=== PATIENT | female | born 1965 | race Caucasian/White ===

== ENCOUNTER 2016-12-26 11:50 | Inpatient (IN) ==
--- NOTE | 2016-12-26 12:23 | Emergency Department Note ---
Fall HPI - General Chief Complaint: Vaginal Bleeding Stated Complaint: Vaginal bleeding, weakness Time Seen by Provider: 12/26/16 12:19 Source: EMS Mode of arrival: ambulatory - History of Present Illness HPI Narrative: This patient is very hard to evaluate as she is not understandable due to previous stroke. Caregiver says she's been falling a lot recently as a week and has had slight vaginal bleeding. 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 - Related Data Home Medications Medication Instructions Recorded Confirmed bisacodyl 10 mg rectal suppository 10 mg VA ONCE PRN 08/09/16 12/08/16 rifaximin 550 mg tablet 550 mg PO BID 08/09/16 12/08/16 sodium phosphates 19 gram-7 118 ml VA ONCE PRN 08/09/16 12/08/16 gram/118 mL enema Previous Rx's Medication Instructions Recorded duloxetine 30 mg capsule,delayed 30 mg PO QDAY #90 cap 07/18/16 release furosemide 40 mg tablet 40 mg PO QDAY 90 Days 07/18/16 gabapentin 600 mg tablet 600 mg PO TID 90 Days 07/18/16 pantoprazole 40 mg tablet,delayed 40 mg PO QDAY #90 tab 07/18/16 release spironolactone 100 mg tablet 100 mg PO QDAY #90 tab 07/18/16 sucralfate 1 gram tablet 1 g PO BID 90 Days 07/18/16 acetaminophen 325 mg tablet 325 mg PO TID PRN #1 tab 08/23/16 Ondansetron [Zofran Odt] 4 mg PO Q4-6H PRN #14 tab 09/08/16 Cyclobenzaprine [Flexeril] 5 mg PO TIDP PRN #20 tab 09/27/16 Ciprofloxacin [Cipro] 500 mg PO BID #6 tab 10/05/16 lactulose 10 gram/15 mL oral 20 g PO TID PRN #500 ml 11/25/16 solution hydrocodone 5 mg-acetaminophen 325 1 tab PO TID #90 tab 12/08/16 mg tablet Adult Diapers #150 12/19/16 Allergies Allergy/AdvReac Type Severity Reaction Status Date / Time aspirin Allergy Mild Other Verified 12/26/16 11:56 iodine Allergy Mild Unknown Verified 12/26/16 11:56 Penicillins [PENICILLINS] AdvReac Mild Nausea Verified 12/26/16 11:56 Review of Systems Limitations: ROS unobtainable due to patients medical condition Fall PMH - Past Medical History Medical history: Reports: CVA, hypertension, liver disease, seizures, other ( History of hepatitis C and alcoholism, recent hepatoencephalopathy, carpal tunnel, hypertension, hyperglycemia, cardiomyopathy, alcohol dependence) Surgical history ED: Reports: cholecystectomy, hysterectomy, other (craniotomy) 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 Family history: Reports: no significant family history - Social History Alcohol use: Reports: Heavy (heavy in past but claims to have quit the last 4 weeks) Drug use: Reports: none Physical Exam - General Limitations: language barrier, physical limitation General appearance: in no apparent distress - Head Head exam: atraumatic - Eye Eye exam: Present: normal appearance - ENT ENT exam: normal exam - Neck Neck exam: Present: normal inspection - Chest Chest inspection: Present: normal inspection - Respiratory Respiratory exam: Present: normal lung sounds bilaterally - Cardiovascular Cardiovascular exam: Present: regular rate, normal rhythm, normal heart sounds - Abdominal Exam Abdominal exam: Present: soft. Absent: distention, tenderness - Speculum exam: Present: normal speculum exam. Absent: vaginal bleeding Bimanual exam: Present: normal bimanual exam - Psychiatric Psychiatric exam: Present: normal affect - Skin Skin exam: Present: warm, dry Course Vital Signs Temperature 97.9 F 12/26/16 11:52 Pulse Rate 83 12/26/16 11:52 Respiratory Rate 16 12/26/16 11:52 Pulse Oximetry (%) 99 12/26/16 11:52 Temperature 97.9 F 12/26/16 11:52 Pulse Rate 92 H 12/26/16 18:02 Respiratory Rate 18 12/26/16 18:02 Blood Pressure 113/69 12/26/16 18:02 Pulse Oximetry (%) 97 12/26/16 18:02 Fall - Lab Data Lab results reviewed: Yes I reviewed the patient's lab results. Result diagrams: 12/26/16 12:50 12/26/16 12:50 Lab Results 12/26/16 12/26/16 12/26/16 Range/Units 12:50 12:50 12:50 WBC 7.7 (4.5-11.0) K/mcL RBC 3.48 L (4.00-5.20) M/mcL Hgb 8.8 L (12.0-15.0) g/dL Hct 26.9 L (36.0-48.0) % MCV 77.4 L (80.0-100.0) fL MCH 25.3 L (26.0-34.0) pg MCHC 32.7 (31.0-36.0) g/dL RDW 21.2 H (11.5-14.5) % Plt Count 111 L (140-440) K/mcL MPV 7.9 (7.4-10.4) fL Gran % 67.6 (38.0-78.0) % Lymph % (Auto) 17.7 (15.5-49.0) % [place] % (Auto) 13.4 H (1.0-9.0) % Eos % (Auto) 0.8 (0.0-7.0) % Baso % (Auto) 0.5 (0.0-2.0) % Gran # 5.2 (1.8-8.0) K/mcL Lymph # 1.4 L (1.5-4.8) K/mcL [place] # 1.0 H (0.1-0.9) K/mcL Eos # 0.1 (0.0-0.7) K/mcL Baso # 0 (0.0-0.3) K/mcL PT 18.4 H (11.9-14.5) sec INR 1.5 H (0.9-1.1) Sodium 143 (133-145) mmol/L Potassium 3.7 (3.3-5.1) mmol/L Chloride 104 (96-108) mmol/L Carbon Dioxide 24 (22-30) mmol/L Anion Gap 15.0 (8-16) BUN 47 H (6-20) mg/dl Creatinine 1.3 H (0.6-1.1) mg/dl GFR Calculation 47 Glucose 100 (70-105) mg/dL Calcium 9.6 (8.6-10.4) mg/dl Total Bilirubin 2.3 H (0.0-1.0) mg/dL AST 63 H (0-37) U/l ALT 30 (0-40) U/l Alkaline Phosphatase 146 H (39-117) U/L Ammonia (11-51) mcmol/L Total Protein 6.4 (5.9-8.4) gm/dL Albumin 3.6 (3.2-5.2) gm/dL Globulin 2.8 (2.2-3.7) gm/dL Albumin/Globulin Ratio 1.3 (1.0-2.3) Urine Color Urine Appearance Urine pH (5.0-9.0) Ur Specific [place] (1.000-1.035) Urine Protein (NEG) mg/dL Urine Glucose (UA) (NEG) mg/dL Urine Ketones (NEG) mg/dL Urine Occult Blood (<0.03) mg/dL Urine Nitrate (NEG) Urine Bilirubin (NEG) mg/dL Urine Urobilinogen (NEG) mg/dL Ur Leukocyte Esterase (NEG) /uL Ur Culture Indicated? 12/26/16 12/26/16 Range/Units 12:50 17:06 WBC (4.5-11.0) K/mcL RBC (4.00-5.20) M/mcL Hgb (12.0-15.0) g/dL Hct (36.0-48.0) % MCV (80.0-100.0) fL MCH (26.0-34.0) pg MCHC (31.0-36.0) g/dL RDW (11.5-14.5) % Plt Count (140-440) K/mcL MPV (7.4-10.4) fL Gran % (38.0-78.0) % Lymph % (Auto) (15.5-49.0) % [place] % (Auto) (1.0-9.0) % Eos % (Auto) (0.0-7.0) % Baso % (Auto) (0.0-2.0) % Gran # (1.8-8.0) K/mcL Lymph # (1.5-4.8) K/mcL [place] # (0.1-0.9) K/mcL Eos # (0.0-0.7) K/mcL Baso # (0.0-0.3) K/mcL PT (11.9-14.5) sec INR (0.9-1.1) Sodium (133-145) mmol/L Potassium (3.3-5.1) mmol/L Chloride (96-108) mmol/L Carbon Dioxide (22-30) mmol/L Anion Gap (8-16) BUN (6-20) mg/dl Creatinine (0.6-1.1) mg/dl GFR Calculation Glucose (70-105) mg/dL Calcium (8.6-10.4) mg/dl Total Bilirubin (0.0-1.0) mg/dL AST (0-37) U/l ALT (0-40) U/l Alkaline Phosphatase (39-117) U/L Ammonia 77 H (11-51) mcmol/L Total Protein (5.9-8.4) gm/dL Albumin (3.2-5.2) gm/dL Globulin (2.2-3.7) gm/dL Albumin/Globulin Ratio (1.0-2.3) Urine Color Yellow Urine Appearance Clear Urine pH 5.0 (5.0-9.0) Ur Specific [place] 1.017 (1.000-1.035) Urine Protein Neg (NEG) mg/dL Urine Glucose (UA) Negative (NEG) mg/dL Urine Ketones 5/tr A (NEG) mg/dL Urine Occult Blood Neg (<0.03) mg/dL Urine Nitrate Neg (NEG) Urine Bilirubin Neg (NEG) mg/dL Urine Urobilinogen 2.0 A (NEG) mg/dL Ur Leukocyte Esterase Neg (NEG) /uL Ur Culture Indicated? No - Radiology Data Radiology results reviewed: Yes I reviewed the patient's radiology results. Disposition Clinical Impression: Hepatic encephalopathy Disposition: Xfer As Inpt ([facility]) Condition: Undetermined Referrals: Claudia Klein DO [Primary Care Provider] - Time of Disposition: 18:14
[2016-12-26] MEDS: 0.9 % SODIUM CHLORIDE 1,000 ML IV SCH ×3 (12:57→21:05)
[2016-12-26 14:17] LABS: Basophils # (Auto) 0 K/mcL (0.0-0.3); Basophils % (Auto) 0.5 % (0.0-2.0); Eosinophils # (Auto) 0.1 K/mcL (0.0-0.7); Eosinophils % (Auto) 0.8 % (0.0-7.0); Granulocytes % (Auto) 67.6 % (38.0-78.0); Lymphocytes # (Auto) 1.4 K/mcL (1.5-4.8); Lymphocytes % (Auto) 17.7 % (15.5-49.0); Mean Cell Volume 77.4 fL (80.0-100.0); Mean Corpuscular HGB Conc 32.7 g/dL (31.0-36.0); Mean Corpuscular Hemoglobin 25.3 pg (26.0-34.0); Monocytes % (Auto) 13.4 % (1.0-9.0); Platelet Count 111 K/mcL (140-440); RBC 3.48 M/mcL (4.00-5.20); Red Cell Distribution Width 21.2 % (11.5-14.5)
[2016-12-26 15:31] LABS: ALT/SGPT 30 U/l (0-40); Albumin 3.6 gm/dL (3.2-5.2); Albumin/Globulin Ratio 1.3 (1.0-2.3); Alkaline Phosphatase 146 U/L (39-117); Blood Urea Nitrogen 47 mg/dl (6-20)
--- NOTE | 2016-12-26 16:12 | Cat Scan Report ---
CLINICAL INFORMATION: Head injury. Altered level of consciousness COMPARISON: Previous examinations dated 10/03/2016 and 05/01/2015 TECHNIQUE: Axial noncontrast-enhanced images through the brain. FINDINGS: No acute intracranial hemorrhage. No subdural hematoma. No epidural hematoma. No subarachnoid hemorrhage. There is left middle cerebral artery territory encephalomalacia. This is a chronic abnormality. There is enlargement of left lateral ventricle. No acute intra-axial attenuation abnormalities. No mass effect. No interval change. Brainstem and cerebellum are negative. No calvarial fracture. Skull base is negative. IMPRESSION: 1. No acute posttraumatic abnormality. 2. Chronic left sided encephalomalacia. No interval change since 10/03/2016 Interpreted and Authenticated by: Zenon Medeiros 12/26/16
--- NOTE | 2016-12-26 16:54 | XRay Report ---
CLINICAL INFORMATION: Weakness TECHNIQUE: Upright AP chest x-ray COMPARISON: 10/13/2016 FINDINGS: Mild left basilar parenchymal density. Findings may be due to atelectasis but pneumonia is possible. Right lung is negative. Heart size and vascularity are normal. No pulmonary congestion. No pulmonary edema.. IMPRESSION: Left basilar parenchymal density as above. Interpreted and Authenticated by: Zenon Medeiros 12/26/16
--- NOTE | 2016-12-26 17:30 | XRay Report ---
CLINICAL INFORMATION: Hip pain. Pelvis pain. TECHNIQUE: AP pelvis. Bilateral lateral hips COMPARISON: None. FINDINGS: Negative pelvis. No fracture. No lytic lesion. Sacrum and sacroiliac joints are unremarkable. Negative hips. Femoral heads and necks are normal bilaterally. No fracture. Articular surfaces are round and smooth. No evidence for avascular necrosis. Degenerative disc disease in the lower lumbar spine. IMPRESSION: Negative pelvis and hips Interpreted and Authenticated by: Zenon Medeiros 12/26/16
[2016-12-26 17:43] LABS: Appearance,Urine CLEAR; Bilirubin,Urine NEG (NEG); Color,Urine YELLOW; Glucose,Urine (UA) NEGATIVE (NEG); Leukocyte Esterase,Urine NEG /uL (NEG); Nitrate,Urine NEG (NEG); Protein,Urine NEG (NEG); Specific Gravity,Urine 1.017 (1.000-1.035); Urine Blood NEG mg/dL (<0.03)
[2016-12-26] MEDS ORDERED: LEVOFLOXACIN 500 MG/100 ML BAG IV ONE (18:13)
[2016-12-26] MEDS ORDERED: guaiFENesin/CODEINE 10 ML UDC PO PRN (20:53)
[2016-12-26] MEDS ORDERED: ACETAMINOPHEN 325 MG TABLET PO PRN (20:53)
[2016-12-26] MEDS ORDERED: MAGNESIUM HYDROXIDE 30 ML ORAL.SUSP PO PRN (20:53)
[2016-12-26] MEDS ORDERED: ONDANSETRON 4 MG/2 ML VIAL IV PRN (20:53)
[2016-12-26] MEDS ORDERED: MAGNESIUM SULFATE 2 GM/50 ML BAG IV PRN (20:53)
[2016-12-26] MEDS ORDERED: POTASSIUM CHLORIDE 20 MEQ PACKET PO PRN (20:53)
[2016-12-26] MEDS: SENNOSIDES/DOCUSATE SODIUM 1 TAB TABLET PO SCH (21:36)
[2016-12-26] MEDS: cefTRIAXone 2 GM in DEXTROSE 5% IN WATER 50 ML IV SCH (21:36)
[2016-12-26] MEDS: DOCUSATE SODIUM 100 MG CAPSULE PO SCH (21:36)
[2016-12-26] MEDS: CYANOCOBALAMIN (VITAMIN B-12) 500 MCG TABLET PO SCH (21:36)
[2016-12-26] MEDS: traZODone HCL 50 MG TABLET PO PRN (21:36)
[2016-12-27] MEDS: 0.9 % SODIUM CHLORIDE 1,000 ML IV SCH ×5 (00:07→21:02)
[2016-12-27] MEDS: 0.9 % SODIUM CHLORIDE 10 ML SYRINGE IV SCH ×3 (00:07→12:25)
[2016-12-27 06:43] LABS: Mean Cell Volume 78.8 fL (80.0-100.0); Mean Corpuscular HGB Conc 31.8 g/dL (31.0-36.0); Platelet Count 75 K/mcL (140-440); RBC 2.87 M/mcL (4.00-5.20); Red Cell Distribution Width 21.7 % (11.5-14.5)
[2016-12-27 07:25] LABS: ALT/SGPT 24 U/l (0-40); Albumin 2.8 gm/dL (3.2-5.2); Albumin/Globulin Ratio 1.3 (1.0-2.3); Alkaline Phosphatase 109 U/L (39-117); Bilirubin,Direct 0.5 mg/dL (0.0-0.3); Blood Urea Nitrogen 30 mg/dl (6-20); Gamma Glutamyl Transpeptidase 24 U/L (5-36); Phosphorous 2.2 mg/dL (2.7-4.5); Uric Acid 9.9 mg/dL (2.5-8.0)
[2016-12-27] MEDS: PANTOPRAZOLE 40 MG VIAL IV SCH (07:46)
[2016-12-27 08:07] LABS: Anisocytosis 2+ (NONE SEEN); Band Neutrophils % 1 % (0-10); Eosinophils % (Manual) 3 % (0-7); Hypochromasia 1+ (NONE SEEN); Lymphocytes % 21 % (15-49); Monocytes % (Manual) 8 % (1-9); Myelocytes % 1 % (0-0); Platelet Estimate DECREASED (NORMAL); RBC Morphology ABNORMAL (NORMAL); Segmented Neutrophils % 66 % (38-78)
[2016-12-27] MEDS ORDERED: 0.9 % SODIUM CHLORIDE 250 ML IV SCH (08:30)
[2016-12-27] MEDS: MULTIVIT,THER IRON,CA,FA & MIN 1 TABLET PO SCH (09:48)
[2016-12-27] MEDS: THIAMINE 100 MG in 0.9 % SODIUM CHLORIDE 50 ML IV SCH (09:49)
[2016-12-27] MEDS: CYANOCOBALAMIN (VITAMIN B-12) 500 MCG TABLET PO SCH ×2 (09:49→20:44)
[2016-12-27] MEDS: DOCUSATE SODIUM 100 MG CAPSULE PO SCH ×2 (09:49→20:47)
--- NOTE | 2016-12-27 11:36 | Internal Med Progress Note ---
Medical - PN: Subj Patient information: Note initiated : 12/27/16 at 11:32 am Service Date, if different from initiated Date: [] Patient: Sridevi Bean 51 y/o F admitted on 12/26/16 for Vaginal Bleeding, Weakness/Hepatic Encephalopathy. Chief Complaint: [] Interval history: 12/26-atient admitted with altered mental status/hepatic encephalopathy. Left basilar infiltrates likely aspiration. On antibiotic coverage. Admitted to telemetry in light of high risk mortality.acute renal failure with creatinine of 1.3. started on crystalloids. Possible overdiuresis. severe PEM.dietary consult 12/27-patient alert and lucid and responsive. Responding to antibiotics. Sitting up in chair. Could not sleep last night. No telemetry events. Continue lactulose. Restart home meds. possible discharge 24 hours if clinically improved. Nutritional consult ongoing for severe protein calorie malnutrition. Continue physical therapy. Consider SNF - Constitutional Vitals: Vital Signs Temp Pulse Resp BP Pulse Ox 98.3 F 81 14 102/45 97 12/27/16 04:00 12/27/16 04:00 12/27/16 04:00 12/27/16 04:00 12/27/16 04:00 Period Temp Pulse Resp BP Sys/Rod Pulse Ox Last 24 Hr 98.3 F-98.3 F 78-87 14-16 101-108/45-61 96-98 Intake and Output 12/26/16 12/27/16 12/27/16 21:59 05:59 13:59 Intake Total 480 / 1580 3130 / 3130 1114 / 1114 Output Total 775 / 775 Balance 480 / -270 2355 / 2355 1114 / 1114 Weight 93 lb 11.2 oz Intake & Output: Intake & Output 12/26/16 12/27/16 12/27/16 21:59 05:59 13:59 Intake Total 480 / 1580 3130 / 3130 1114 / 1114 Output Total 775 / 775 Balance 480 / -270 2355 / 2355 1114 / 1114 Weight 93 lb 11.2 oz Intake: IV 2049 394 / 394 Sodium Chloride 0.9% 1999 394 / 394 000 ml @ 50 mls/hr IV . Q20H [facility] Rx#:[id number] Dextrose 5% in Water 50 50 / 50 ml @ 100 mls/hr IV DAILY [facility] with Rocephin 2 gm Rx #:[id number] Oral 480 / 480 1080 / 1080 720 / 720 Output: Urine Catheter Amount 775 / 775 Other: Meal Breakfast Percent of Meal Consumed 100% Feeding Ability Assist with Tray Set Up General appearance: no acute distress, thin Exam: significant wasting nondistended Nontenderabdomen Alert nonlabored breathing Minimal anxiety Medical - PN: Obj Da - Labs CBC & Chem 7: 12/27/16 04:05 12/27/16 04:05 Labs: Abnormal Lab Results 12/27/16 12/27/16 04:05 04:05 RBC 2.87 L Hgb 7.2 L Hct 22.6 L MCV 78.8 L MCH 25.0 L RDW 21.7 H Plt Count 75 L Myelocytes % 1 H Polychromasia 1+ A Hypochromasia 1+ A Anisocytosis 2+ A Microcytosis 1+ A Carbon Dioxide 20 L BUN 30 H Uric Acid 9.9 H Calcium 8.2 L Phosphorus 2.2 L Total Bilirubin 1.5 H Direct Bilirubin 0.5 H AST 54 H Lactate Dehydrogenase 371 H Total Protein 5.0 L Albumin 2.8 L Meds: Medications Acetaminophen (Tylenol) 650 mg PO Q4-6HP PRN PRN Reason: PAIN/FEVER > 101 Last Admin: 12/27/16 10:28 Dose: 650 mg Cyanocobalamin (Vitamin B-12) 1,000 mcg PO BID [facility] Stop: 12/31/16 09:01 Last Admin: 12/27/16 09:49 Dose: 1,000 mcg Docusate Sodium (Colace) 100 mg PO BID [facility] Last Admin: 12/27/16 09:49 Dose: 100 mg Guaifenesin/Codeine Phosphate (Robitussin Ac) 10 ml PO Q4HP PRN PRN Reason: Cough Magnesium Sulfate (Magnesium Sulfate) 2 gm in 50 mls @ 25 mls/hr IV UD PRN PRN Reason: MG = or < 1.7 Sodium Chloride (Sodium Chloride 0.9%) 1,000 mls @ 50 mls/hr IV .Q20H [facility] Stop: 12/29/16 08:52 Last Admin: 12/27/16 08:15 Dose: 50 mls/hr Sodium Chloride (Sodium Chloride 0.9%) 1,000 mls @ 0 mls/hr IV BOLUS [facility] PRN Reason: Wide Open Last Infusion: 12/27/16 00:08 Dose: Infused Thiamine HCl 100 mg/ Sodium (Chloride) 51 mls @ 50 mls/hr IV DAILY [facility] Stop: 12/29/16 10:02 Last Admin: 12/27/16 09:49 Dose: 50 mls/hr Ceftriaxone Sodium 2 gm/ (Dextrose) 50 mls @ 100 mls/hr IV DAILY [facility] Last Infusion: 12/27/16 00:08 Dose: Infused Sodium Chloride (Sodium Chloride 0.9%) 250 mls @ 20 mls/hr IV .[id number] [facility] Stop: 12/27/16 20:59 Iron Carb/Multivit/Surveyor Mine/Folic Acid (Multivitamin W/Minerals) 1 tab PO DAILY [facility] Last Admin: 12/27/16 09:48 Dose: 1 tab Magnesium Hydroxide (Milk Of Magnesia) 30 ml PO HSP PRN PRN Reason: Constipation Ondansetron HCl (Zofran) 4 mg IV Q4-6HP PRN PRN Reason: Nausea And Vomiting Pantoprazole Sodium (Protonix) 40 mg IV QAMAC [facility] Last Admin: 12/27/16 07:46 Dose: 40 mg Potassium Chloride (Klor-Con) 40 meq PO DAILYP PRN PRN Reason: K+ < 3.5 Senna/Docusate Sodium (Senna Plus Tablet) 1 tab PO HS [facility] Last Admin: 12/26/16 21:36 Dose: 1 tab Sodium Chloride (Saline Flush) 10 ml IV Q8 [facility] Last Admin: 12/27/16 05:43 Dose: 10 ml Trazodone HCl (Desyrel) 50 mg PO HSP PRN PRN Reason: Insomnia Last Admin: 12/26/16 21:36 Dose: 50 mg Medical - PN: A/P - Time Spent With Patient Total time spent is greater than 50% in coordination of care (as documented) at patient's floor/unit and/or counseling patient: 25 - 35 minutes (1) Hepatic encephalopathy Status: Acute Assessment and plan: * Hepatic encephalopathy-ontinue lactulose * Severe protein calorie malnutrition-dietary consult/protein supplements * 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 Compensated.continue home dose diuretics. Continue follow up with primary care physician/GI as outpatient * recurrent fall-high risk fall. ContinuePT eval and gait and safety training * History of alcoholism-o signs of withdrawal * Anxiety disorder on duloxetine * Neuropathy on gabapentin * GERD on PPI/sucralfate plan * continue PT OT,Gait and safety eval * lactulose * pre-existing medical condition management as above * High-protein calorie nutrition * case management to arrange SNF transfer if patient agrees Current Visit: Yes Medical - PN: Qual - VTE Deep Vein Thrombosis/Pulmonary Embolism Present on Admission: No
[2016-12-27] MEDS: LACTULOSE 20 GM/30 ML ORAL.SOL PO SCH ×3 (12:44→20:46)
[2016-12-27] MEDS: HYDROcodone/APAP 5/325MG TABLET PO SCH ×3 (12:44→20:45)
[2016-12-27] MEDS: cefTRIAXone 2 GM in DEXTROSE 5% IN WATER 50 ML IV SCH (14:36)
[2016-12-27] MEDS: GABAPENTIN 300 MG CAPSULE PO SCH ×2 (16:09→20:45)
[2016-12-27] MEDS: traZODone HCL 50 MG TABLET PO PRN (20:44)
[2016-12-27] MEDS: SUCRALFATE 1 GM TABLET PO SCH (20:45)
[2016-12-27] MEDS: SENNOSIDES/DOCUSATE SODIUM 1 TAB TABLET PO SCH (20:46)
[2016-12-28] MEDS: 0.9 % SODIUM CHLORIDE 10 ML SYRINGE IV SCH ×3 (00:24→14:12)
[2016-12-28] MEDS: HYDROcodone/APAP 5/325MG TABLET PO SCH ×4 (02:54→19:23)
[2016-12-28 06:42] LABS: Mean Cell Volume 81.6 fL (80.0-100.0); Mean Corpuscular HGB Conc 32.6 g/dL (31.0-36.0); Mean Corpuscular Hemoglobin 26.6 pg (26.0-34.0); Platelet Count 72 K/mcL (140-440); RBC 4.08 M/mcL (4.00-5.20); Red Cell Distribution Width 20.8 % (11.5-14.5)
[2016-12-28 07:01] LABS: ALT/SGPT 25 U/l (0-40); Albumin 2.9 gm/dL (3.2-5.2); Albumin/Globulin Ratio 1.2 (1.0-2.3); Alkaline Phosphatase 149 U/L (39-117); Bilirubin,Direct 0.6 mg/dL (0.0-0.3); Blood Urea Nitrogen 13 mg/dl (6-20); Gamma Glutamyl Transpeptidase 26 U/L (5-36); Magnesium 1.8 mg/dL (1.6-2.5); Phosphorous 1.8 mg/dL (2.7-4.5); Uric Acid 7.8 mg/dL (2.5-8.0)
[2016-12-28 07:36] LABS: Anisocytosis 1+ (NONE SEEN); Band Neutrophils % 1 % (0-10); Basophils % (Manual) 1 % (0-2); Eosinophils % (Manual) 2 % (0-7); Lymphocytes % 27 % (15-49); Monocytes % (Manual) 10 % (1-9); Myelocytes % 1 % (0-0); Platelet Estimate DECREASED (NORMAL); RBC Morphology ABNORMAL (NORMAL); Segmented Neutrophils % 57 % (38-78)
--- NOTE | 2016-12-28 07:36 | XRay Report ---
CLINICAL INFORMATION: Pneumonia TECHNIQUE: Upright AP portable chest x-ray COMPARISON: 12/26/2016, 10/03/2016 FINDINGS: Increased density in the left retrocardiac region consistent with left lower lobe volume loss and infiltrate. Findings are consistent with pneumonia. Right lung is negative. Heart size and vascularity are normal. No pulmonary edema. No pulmonary congestion. IMPRESSION: 1. Focal density in the left retrocardiac region 2. Findings consistent with pneumonia. Interpreted and Authenticated by: Zenon Medeiros 12/28/16
[2016-12-28] MEDS: PANTOPRAZOLE 40 MG VIAL IV SCH (07:42)
[2016-12-28] MEDS: MULTIVIT,THER IRON,CA,FA & MIN 1 TABLET PO SCH (08:51)
[2016-12-28] MEDS: GABAPENTIN 300 MG CAPSULE PO SCH ×3 (08:51→22:29)
[2016-12-28] MEDS: SUCRALFATE 1 GM TABLET PO SCH ×2 (08:51→22:32)
[2016-12-28] MEDS: CYANOCOBALAMIN (VITAMIN B-12) 500 MCG TABLET PO SCH ×2 (08:51→22:32)
[2016-12-28] MEDS: DOCUSATE SODIUM 100 MG CAPSULE PO SCH ×2 (08:52→22:31)
[2016-12-28] MEDS ORDERED: DULoxetine 30 MG CAPSULE PO SCH (09:00)
[2016-12-28] MEDS ORDERED: PANTOPRAZOLE 40 MG TABLET PO SCH (09:00)
[2016-12-28] MEDS ORDERED: SPIRONOLACTONE 25 MG TABLET PO SCH (09:00)
[2016-12-28] MEDS ORDERED: FUROSEMIDE 40 MG TABLET PO SCH (09:00)
[2016-12-28] MEDS: LACTULOSE 20 GM/30 ML ORAL.SOL PO SCH ×3 (09:03→22:37)
[2016-12-28] MEDS: cefTRIAXone 2 GM in DEXTROSE 5% IN WATER 50 ML IV SCH (09:48)
[2016-12-28] MEDS: THIAMINE 100 MG in 0.9 % SODIUM CHLORIDE 50 ML IV SCH (10:43)
--- NOTE | 2016-12-28 11:26 | Internal Med Progress Note ---
Medical - PN: Subj Patient information: Note initiated : 12/28/16 at 11:23 am Service Date, if different from initiated Date: [] Patient: Sridevi Bean 51 y/o F admitted on 12/26/16 for Vaginal Bleeding, Weakness/Hepatic Encephalopathy. Chief Complaint: [] Interval history: 12/[id number]-idsg-old with known history of alcoholic liver disease/cirrhosis admitted with altered mental status/hepatic encephalopathy and acute renal failure. also on imaging Left basilar infiltrates likely aspiration. On antibiotic coverage. Admitted to telemetry in light of high risk mortality.acute renal failure with creatinine of 1.3. started on crystalloids. Possible overdiuresis. severe PEM.dietary consult 12/27-patient alert and lucid and responsive. Responding to antibiotics. Sitting up in chair. Could not sleep last night. No telemetry events. Continue lactulose. Restart home meds. possible discharge 24 hours if clinically improved. Nutritional consult ongoing for severe protein calorie malnutrition. Continue physical therapy. Consider SNF 12/28-patient improved clinically more lucid and alert. Persistent right sided facial droop and weakness from prior CVA. However appears at baseline. Ongoing dietary interventions. patient agreed for rehabilitation/SNF transfer in light of severe deconditioning, anticipate SNF transfer in 24 hours,case management coordinating. Continue antibiotic coverage. No overnight fever chills nausea vomiting or telemetry events. - Constitutional Vitals: Vital Signs Temp Pulse Resp BP Pulse Ox 99.5 F 90 16 118/74 95 12/28/16 08:00 12/28/16 08:00 12/28/16 08:00 12/28/16 08:00 12/28/16 08:00 Period Temp Pulse Resp BP Sys/Rod Pulse Ox Last 24 Hr 97.6 F-99.5 F 84-90 16-20 103-118/62-74 95-98 Intake and Output 12/27/16 12/28/16 12/28/16 21:59 05:59 13:59 Intake Total 1003 / 1003 500 / 500 420 / 420 Output Total 550 / 550 950 / 950 Balance 453 / 453 -450 / -450 420 / 420 Weight 102 lb 11.2 oz Intake & Output: Intake & Output 12/27/16 12/28/16 12/28/16 21:59 05:59 13:59 Intake Total 1003 / 1003 500 / 500 420 / 420 Output Total 550 / 550 950 / 950 Balance 453 / 453 -450 / -450 420 / 420 Weight 102 lb 11.2 oz Intake: IV 173 / 173 Sodium Chloride 0.9% 1, 0 / 0 000 ml @ 50 mls/hr IV . Q20H [facility] Rx#:[id number] Sodium Chloride 0.9% 250 123 / 123 ml @ 20 mls/hr IV . [id number] [facility] Rx#:[id number] Dextrose 5% in Water 50 50 / 50 ml @ 100 mls/hr IV DAILY [facility] with Rocephin 2 gm Rx #:[id number] Oral 480 / 480 500 / 500 420 / 420 Blood Product 350 / 350 Output: Urine Catheter Amount 550 / 550 950 / 950 Other: Meal Dinner Percent of Meal Consumed 50% Feeding Ability Assist with Tray Set Up # Bowel Movements 1 1 General appearance: cooperative, no acute distress Exam: malnourished Nondistressed nonlabored breathing Nondistended abdomen alert oriented neuro changes from prior CVA Medical - PN: Obj Da - Labs CBC & Chem 7: 12/28/16 05:25 12/28/16 05:25 Labs: Abnormal Lab Results 12/28/16 12/28/16 12/27/16 05:25 05:25 04:05 WBC 3.9 L RBC Hgb 10.8 L Hct 33.3 L MCV MCH RDW 20.8 H Plt Count 72 L Monocytes % (Manual) 10 H Myelocytes % 1 H Polychromasia Hypochromasia Anisocytosis 1+ A Microcytosis Carbon Dioxide 20 L BUN 30 H Creatinine 0.5 L Glucose 111 H Uric Acid 9.9 H Calcium 8.2 L Phosphorus 1.8 L 2.2 L Total Bilirubin 2.1 H 1.5 H Direct Bilirubin 0.6 H 0.5 H AST 52 H 54 H Alkaline Phosphatase 149 H Lactate Dehydrogenase 370 H 371 H Total Protein 5.3 L 5.0 L Albumin 2.9 L 2.8 L 12/27/16 04:05 WBC RBC 2.87 L Hgb 7.2 L Hct 22.6 L MCV 78.8 L MCH 25.0 L RDW 21.7 H Plt Count 75 L Monocytes % (Manual) Myelocytes % 1 H Polychromasia 1+ A Hypochromasia 1+ A Anisocytosis 2+ A Microcytosis 1+ A Carbon Dioxide BUN Creatinine Glucose Uric Acid Calcium Phosphorus Total Bilirubin Direct Bilirubin AST Alkaline Phosphatase Lactate Dehydrogenase Total Protein Albumin Meds: Medications Acetaminophen (Tylenol) 650 mg PO Q4-6HP PRN PRN Reason: PAIN/FEVER > 101 Last Admin: 12/27/16 10:28 Dose: 650 mg Acetaminophen/Hydrocodone Bitart ([place] 5/325mg) 1 tab PO TID [facility] Last Admin: 12/28/16 08:50 Dose: 1 tab Cyanocobalamin (Vitamin B-12) 1,000 mcg PO BID [facility] Stop: 12/31/16 09:01 Last Admin: 12/28/16 08:51 Dose: 1,000 mcg Docusate Sodium (Colace) 100 mg PO BID [facility] Last Admin: 12/28/16 08:52 Dose: Not Given Duloxetine HCl (Cymbalta) 30 mg PO QDAY [facility] Last Admin: 12/28/16 08:51 Dose: 30 mg Furosemide (Lasix) 40 mg PO QDAY [facility] Last Admin: 12/28/16 08:51 Dose: 40 mg Gabapentin (Neurontin) 600 mg PO TID [facility] Last Admin: 12/28/16 08:51 Dose: 600 mg Guaifenesin/Codeine Phosphate (Robitussin Ac) 10 ml PO Q4HP PRN PRN Reason: Cough Magnesium Sulfate (Magnesium Sulfate) 2 gm in 50 mls @ 25 mls/hr IV UD PRN PRN Reason: MG = or < 1.7 Sodium Chloride (Sodium Chloride 0.9%) 1,000 mls @ 50 mls/hr IV .Q20H [facility] Stop: 12/29/16 08:52 Last Admin: 12/27/16 20:38 Dose: Not Given Sodium Chloride (Sodium Chloride 0.9%) 1,000 mls @ 0 mls/hr IV BOLUS [facility] PRN Reason: Wide Open Last Admin: 12/27/16 21:02 Dose: Not Given Thiamine HCl 100 mg/ Sodium (Chloride) 51 mls @ 50 mls/hr IV DAILY [facility] Stop: 12/29/16 10:02 Last Admin: 12/28/16 10:43 Dose: 50 mls/hr Ceftriaxone Sodium 2 gm/ (Dextrose) 50 mls @ 100 mls/hr IV DAILY [facility] Last Admin: 12/28/16 09:48 Dose: 100 mls/hr Iron Carb/Multivit/Film Library Clerk/Folic Acid (Multivitamin W/Minerals) 1 tab PO DAILY [facility] Last Admin: 12/28/16 08:51 Dose: 1 tab Lactulose (Cephulac) 20 gm PO TID [facility] Last Admin: 12/28/16 09:03 Dose: Not Given Magnesium Hydroxide (Milk Of Magnesia) 30 ml PO HSP PRN PRN Reason: Constipation Ondansetron HCl (Zofran) 4 mg IV Q4-6HP PRN PRN Reason: Nausea And Vomiting Pantoprazole Sodium (Protonix) 40 mg IV QAMAC [facility] Last Admin: 12/28/16 07:42 Dose: 40 mg Potassium Chloride (Klor-Con) 40 meq PO DAILYP PRN PRN Reason: K+ < 3.5 Senna/Docusate Sodium (Senna Plus Tablet) 1 tab PO HS [facility] Last Admin: 12/27/16 20:46 Dose: Not Given Sodium Chloride (Saline Flush) 10 ml IV Q8 [facility] Last Admin: 12/28/16 08:52 Dose: 10 ml Spironolactone (Aldactone) 100 mg PO DAILY [facility] Last Admin: 12/28/16 08:48 Dose: 100 mg Sucralfate (Carafate) 1 gm PO BID [facility] Last Admin: 12/28/16 08:51 Dose: 1 gm Trazodone HCl (Desyrel) 50 mg PO HSP PRN PRN Reason: Insomnia Last Admin: 12/27/16 20:44 Dose: 50 mg Medical - PN: A/P - Time Spent With Patient Total time spent is greater than 50% in coordination of care (as documented) at patient's floor/unit and/or counseling patient: 25 - 35 minutes (1) Hepatic encephalopathy Status: Acute Assessment and plan: * Hepatic encephalopathy-clinically improved on lactulose * Severe protein calorie malnutrition-ongoing dietary consult/protein supplements * aspiration pneumonia clinically improving on antibiotic coverage * Acute kidney injury creatinine down from 1.3-0.5 with crystalloids. 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 Compensated. Continue follow up with primary care physician/GI as outpatient * recurrent fall-high risk fall. Continue PT eval, transfer to SNF * History of alcoholism-No signs of withdrawal * Anxiety disorder on duloxetine * Neuropathy on gabapentin * GERD on PPI/sucralfate plan * SNF transfer in a.m. * Physical therapy * pre-existing medical condition management as above * continue dietary interventions Current Visit: Yes Medical - PN: Qual - VTE Deep Vein Thrombosis/Pulmonary Embolism Present on Admission: No
[2016-12-28] MEDS ORDERED: IOPAMIDOL 100 ML BOTTLE IV ONE (13:39)
[2016-12-28] MEDS ORDERED: 0.9 % SODIUM CHLORIDE 1,000 ML IV SCH (13:52)
[2016-12-28] MEDS ORDERED: ONDANSETRON 4 MG/2 ML VIAL IV PRN (13:52)
[2016-12-28] MEDS ORDERED: guaiFENesin/CODEINE 10 ML UDC PO PRN (13:52)
[2016-12-28] MEDS ORDERED: traZODone HCL 50 MG TABLET PO PRN (13:52)
[2016-12-28] MEDS ORDERED: MAGNESIUM SULFATE 2 GM/50 ML BAG IV PRN (13:52)
[2016-12-28] MEDS ORDERED: ACETAMINOPHEN 325 MG TABLET PO PRN (13:52)
[2016-12-28] MEDS ORDERED: MAGNESIUM HYDROXIDE 30 ML ORAL.SUSP PO PRN (13:52)
[2016-12-28] MEDS ORDERED: POTASSIUM CHLORIDE 20 MEQ PACKET PO PRN (13:52)
--- NOTE | 2016-12-28 14:08 | Cat Scan Report ---
CLINICAL INFORMATION: Vaginal bleeding. Abdominal pain. Weakness. Hepatic encephalopathy. COMPARISON: Previous CT scan dated 11/04/2016 TECHNIQUE: Axial images were obtained through the abdomen and pelvis. Sagittally and coronally reformatted images. 70 mL nonionic contrast material injected intravenously. Oral contrast material was given. FINDINGS: Dense left lower lobe consolidation consistent with pneumonia. This is a new finding since previous examination. Right lung base is negative. Small left pleural effusion. No pericardial effusion. Liver contour is slightly nodular consistent with cirrhosis. Liver is mildly atrophic. No focal mass. No detectable hepatocellular carcinoma. There are surgical clips in the gallbladder fossa. No dilated bile ducts. Spleen measures 12.8 x 7.8 x 11.0 cm. Appearance is consistent with borderline splenomegaly. There is normal enhancement of splenic and portal veins. No portal venous thrombosis. No hepatic venous thrombosis. Negative pancreas. No pancreatic mass. No peripancreatic abnormality. There is a 2 cm low density abnormality at the ampulla. This does not cause bile duct or pancreatic duct dilatation. MARY ALICE values are nonspecific. This may be a polypoid lesion at the ampulla. Endoluminal ultrasound or ERCP be helpful for further evaluation. Adrenal glands are negative. Kidneys are negative. No solid or cystic mass. No hydronephrosis. There is a prominent recanalized umbilical vein. No significant paranasal esophageal varices. There are retroperitoneal perisplenic varices. There is moderate ascites. No peritoneal based masses. No evidence for malignant ascites. No focal fluid collection. No intra-abdominal abscess. No pneumoperitoneum. No biliary or portal venous gas. No pneumatosis. Colon is negative. There are very prominent mucosal hilus sacral folds. No detectable annular mass. No appendicitis. No diverticulitis. Uterus is negative. No adnexal mass. There is a Kwok catheter within the urinary bladder. Degenerative disc disease at L4-L5 and L5-S1. No compression deformities. No sacral or pelvic fracture. IMPRESSION: 1. Dense left lower lobe consolidation consistent with pneumonia 2. Moderate ascites 3. Cirrhosis. No hepatic mass. Interpreted and Authenticated by: Zenon Medeiros 12/28/16
[2016-12-28] MEDS: SENNOSIDES/DOCUSATE SODIUM 1 TAB TABLET PO SCH (22:34)
[2016-12-29] MEDS: DOCUSATE SODIUM 100 MG CAPSULE PO SCH ×2 (00:42→09:20)
[2016-12-29] MEDS: SENNOSIDES/DOCUSATE SODIUM 1 TAB TABLET PO SCH (00:42)
[2016-12-29] MEDS: GABAPENTIN 300 MG CAPSULE PO SCH ×2 (00:46→09:16)
[2016-12-29] MEDS: SUCRALFATE 1 GM TABLET PO SCH ×2 (00:46→09:16)
[2016-12-29] MEDS: CYANOCOBALAMIN (VITAMIN B-12) 500 MCG TABLET PO SCH ×2 (00:46→09:24)
[2016-12-29] MEDS: 0.9 % SODIUM CHLORIDE 1,000 ML IV SCH (00:48)
[2016-12-29] MEDS: 0.9 % SODIUM CHLORIDE 10 ML SYRINGE IV SCH ×2 (02:36→05:03)
[2016-12-29 07:28] LABS: Mean Cell Volume 82.3 fL (80.0-100.0); Mean Corpuscular HGB Conc 32.9 g/dL (31.0-36.0); Platelet Count 67 K/mcL (140-440); Red Cell Distribution Width 21.4 % (11.5-14.5)
[2016-12-29] MEDS ORDERED: PANTOPRAZOLE 40 MG VIAL IV SCH (07:30)
[2016-12-29 07:41] LABS: ALT/SGPT 22 U/l (0-40); Albumin 2.7 gm/dL (3.2-5.2); Albumin/Globulin Ratio 1.2 (1.0-2.3); Alkaline Phosphatase 147 U/L (39-117); Bilirubin,Direct 0.4 mg/dL (0.0-0.3); Blood Urea Nitrogen 10 mg/dl (6-20); Gamma Glutamyl Transpeptidase 23 U/L (5-36); Magnesium 1.5 mg/dL (1.6-2.5); Phosphorous 2.3 mg/dL (2.7-4.5); Uric Acid 5.8 mg/dL (2.5-8.0)
[2016-12-29] MEDS: HYDROcodone/APAP 5/325MG TABLET PO SCH (07:45)
[2016-12-29] MEDS ORDERED: MULTIVIT,THER IRON,CA,FA & MIN 1 TABLET PO SCH (09:00)
[2016-12-29] MEDS ORDERED: THIAMINE 100 MG in 0.9 % SODIUM CHLORIDE 50 ML IV SCH (09:00)
[2016-12-29] MEDS ORDERED: cefTRIAXone 2 GM in DEXTROSE 5% IN WATER 50 ML IV SCH (09:00)
[2016-12-29] MEDS ORDERED: DULoxetine 30 MG CAPSULE PO SCH (09:00)
[2016-12-29] MEDS ORDERED: FUROSEMIDE 40 MG TABLET PO SCH (09:00)
[2016-12-29] MEDS ORDERED: SPIRONOLACTONE 25 MG TABLET PO SCH (09:00)
[2016-12-29] MEDS: LACTULOSE 20 GM/30 ML ORAL.SOL PO SCH ×2 (09:16→09:20)
[2016-12-29 09:36] LABS: Anisocytosis 2+ (NONE SEEN); Eosinophils % (Manual) 1 % (0-7); Lymphocytes % 14 % (15-49); Monocytes % (Manual) 17 % (1-9); Platelet Estimate DECREASED (NORMAL); RBC Morphology ABNORM (NORMAL); Segmented Neutrophils % 67 % (38-78)
--- NOTE | 2016-12-29 11:27 | Discharge Summary ---
Medical - DS: Prov Patient information: Note initiated : 12/29/16 at 11:25 am Service Date, if different from initiated Date: [] Patient: Sridevi Bean 51 y/o F admitted on 12/26/16 for Vaginal Bleeding, Weakness/Hepatic Encephalopathy. Chief Complaint: [] Date of admission: 12/26/16 20:25 Discharge date: 12/29/16 Primary care physician: [f_Reg Prim Care Provider] Medical - DS: Meds - Discharge Medications Prescriptions: Cefdinir 300 mg PO BID #10 capsule Levofloxacin [Levaquin] 750 mg PO DAILY #5 tablet Active and Home Medications: Home Medications HYDROcodone/APAP 5/325MG [[place] 5/325Mg] 1 tab PO TID 12/27/16 [History Confirmed 12/27/16 Last Taken Unknown] Cefdinir 300 mg PO BID #10 capsule 12/29/16 [Rx Last Taken Unknown] Levofloxacin [Levaquin] 750 mg PO DAILY #5 tablet 12/29/16 [Rx Last Taken Unknown] Active Medications Acetaminophen (Tylenol) 650 mg PO Q4-6HP PRN PRN Reason: PAIN/FEVER > 101 Acetaminophen/Hydrocodone Bitart ([place] 5/325mg) 1 tab PO TID [facility] Last Admin: 12/29/16 07:45 Dose: 1 tab Cyanocobalamin (Vitamin B-12) 1,000 mcg PO BID [facility] Stop: 12/31/16 09:01 Last Admin: 12/29/16 09:24 Dose: 1,000 mcg Docusate Sodium (Colace) 100 mg PO BID [facility] Last Admin: 12/29/16 09:20 Dose: Not Given Duloxetine HCl (Cymbalta) 30 mg PO QDAY [facility] Last Admin: 12/29/16 09:17 Dose: 30 mg Furosemide (Lasix) 40 mg PO QDAY [facility] Last Admin: 12/29/16 09:17 Dose: 40 mg Gabapentin (Neurontin) 600 mg PO TID [facility] Last Admin: 12/29/16 09:16 Dose: 600 mg Guaifenesin/Codeine Phosphate (Robitussin Ac) 10 ml PO Q4HP PRN PRN Reason: Cough Magnesium Sulfate (Magnesium Sulfate) 2 gm in 50 mls @ 25 mls/hr IV UD PRN PRN Reason: MG = or < 1.7 Last Admin: 12/29/16 10:19 Dose: 25 mls/hr Ceftriaxone Sodium 2 gm/ (Dextrose) 50 mls @ 100 mls/hr IV DAILY [facility] Last Admin: 12/29/16 09:20 Dose: 100 mls/hr Iron Carb/Multivit/[employer]utter/Folic Acid (Multivitamin W/Minerals) 1 tab PO DAILY [facility] Last Admin: 12/29/16 09:17 Dose: 1 tab Lactulose (Cephulac) 20 gm PO TID [facility] Last Admin: 12/29/16 09:20 Dose: Not Given Magnesium Hydroxide (Milk Of Magnesia) 30 ml PO HSP PRN PRN Reason: Constipation Ondansetron HCl (Zofran) 4 mg IV Q4-6HP PRN PRN Reason: Nausea And Vomiting Pantoprazole Sodium (Protonix) 40 mg IV QAMAC [facility] Last Admin: 12/29/16 07:45 Dose: 40 mg Potassium Chloride (Klor-Con) 40 meq PO DAILYP PRN PRN Reason: K+ < 3.5 Senna/Docusate Sodium (Senna Plus Tablet) 1 tab PO HS [facility] Last Admin: 12/29/16 00:42 Dose: Not Given Sodium Chloride (Saline Flush) 10 ml IV Q8 [facility] Last Admin: 12/29/16 05:03 Dose: 10 ml Spironolactone (Aldactone) 100 mg PO DAILY [facility] Last Admin: 12/29/16 09:16 Dose: 100 mg Sucralfate (Carafate) 1 gm PO BID [facility] Last Admin: 12/29/16 09:16 Dose: 1 gm Trazodone HCl (Desyrel) 50 mg PO HSP PRN PRN Reason: Insomnia Medical - DS: Hosp Hospital course: DISCHARGE DIAGNOSIS * Hepatic encephalopathy-clinically improved on lactulose * left lower lobe pneumonia- continue antibiotic coverage for additional 5 days. Clinical improvement noted * Severe protein calorie malnutrition-continue dietary consult/protein supplements at care Center * Acute kidney injury - fully resolved.creatinine down from 1.3-0.5 * Vaginal bleeding-no further bleed. Negative CT abdomen pelvis for mass lesion. 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 Compensated. Continue follow up with primary care physician/GI as outpatient * Recurrent fall-high risk fall. Continue PT OT at [facility] * History of alcoholism-No signs of withdrawal * Anxiety disorder on duloxetine * Neuropathy on gabapentin * GERD on PPI/sucralfate BRIEF HOSPITAL COURSE 12/2614-29-akaf-old female with known history of alcoholic liver disease/cirrhosis admitted with altered mental status/hepatic encephalopathy and acute renal failure. Also on imaging Left basilar infiltrates likely aspiration versus community acquired pneumonia. On antibiotic coverage. Admitted to telemetry in light of high risk mortality.acute renal failure with creatinine of 1.3. started on crystalloids. Possible overdiuresis. severe PEM.dietary consult 12/27-patient alert and lucid and responsive. Responding to antibiotics. Sitting up in chair. Could not sleep last night. No telemetry events. Continue lactulose. Restart home meds. possible discharge 24 hours if clinically improved. Nutritional consult ongoing for severe protein calorie malnutrition. Continue physical therapy. Consider SNF 12/28-patient improved clinically more lucid and alert. Persistent right sided facial droop and weakness from prior CVA. However appears at baseline. Ongoing dietary interventions. patient agreed for rehabilitation/SNF transfer in light of severe deconditioning, anticipate SNF transfer in 24 hours,case management coordinating. Continue antibiotic coverage. No overnight fever chills nausea vomiting or telemetry events. 12/29- patient doing well. Much improved mental status. Requesting discharge. CT abdomen and pelvis unremarkable except for cirrhosis and left lower lobe pneumonia. Continue antibiotic coverage for additional 5 days. Continue lactulose. detailed discharge instructions as below. Continue aggressive physical therapy at care Center Discharge diagnosis: left lower lobe pneumonia, hepatic encephalopathy. - Time Spent with Patient Total time spent providing and/or coordinating discharge services: Medical - DS: Exam - Constitutional Vitals: Vital Signs Temp Pulse Pulse Resp BP BP Pulse Ox 12/29/16 08:37 99.3 F 90 22 110/58 12/29/16 07:33 94 12/29/16 04:00 97.7 F 99 H 20 127/66 94 12/29/16 00:00 97.7 F 93 H 20 114/57 94 12/28/16 20:00 98.2 F 89 20 135/79 94 12/28/16 12:00 98.6 F 91 H 18 116/74 99 Intake and Output 12/28/16 12/29/16 12/29/16 21:59 05:59 13:59 Intake Total 300 / 300 240 / 240 Output Total 550 / 550 700 / 700 Balance -250 / -250 -460 / -460 Intake: Oral 300 / 300 240 / 240 Output: Urine Catheter Amount 550 / 550 700 / 700 Other: Meal Dinner Percent of Meal Consumed 75% # Bowel Movements 1 Weight 103 lb General appearance: cooperative, thin Additional comments: alert oriented nonlabored no distress. No abdominal distention no anxiety Medical - DS: Data Labs on day of discharge: Labs from last 24 hours 12/29/16 12/29/16 06:34 06:34 WBC 4.3 L RBC 3.60 L Hgb 9.7 L Hct 29.6 L MCV 82.3 MCH 27.0 MCHC 32.9 RDW 21.4 H Plt Count 67 L MPV 7.8 Total Counted 100 Seg Neutrophils % 67 Band Neutrophils % Not Reportable Lymphocytes % 14 L Monocytes % (Manual) 17 H Eosinophils % (Manual) 1 Reactive Lymphocytes 1 Platelet Estimate Decreased RBC Morphology Abnorm A Anisocytosis 2+ A Sodium 131 L Potassium 3.9 Chloride 99 Carbon Dioxide 25 Anion Gap 7.0 L BUN 10 Creatinine 0.5 L GFR Calculation 111 Glucose 103 Uric Acid 5.8 Calcium 8.3 L Phosphorus 2.3 L Magnesium 1.5 L Total Bilirubin 1.3 H Direct Bilirubin 0.4 H GGT 23 AST 44 H ALT 22 Alkaline Phosphatase 147 H Lactate Dehydrogenase 350 H Total Protein 4.9 L Albumin 2.7 L Globulin 2.2 Albumin/Globulin Ratio 1.2 Triglycerides 38 Medical - DS: A/P - Patient/Caregiver Discharge Instructions Activity: as per physical therapy, increase activity as tolerated Diet: Low Sodium (2gm) (high-protein calorie supplements) Additional Instructions: Follow-up PCP in 5 days follow-up GI as an outpatient for management of cirrhosis follow-up with gynecology in 7-10 days for evaluation of intermittent vaginal bleeding(CT scan unremarkable for mass lesion) I recommend [facility] physician to check CBC BMP UA as a posthospital follow-up and Chest x-ray in 1 week. Antibiotics for 5 days Continue aggressive bowel regimen to prevent constipation Continue fall precautions daily weights measurements and take additional 40 mg Lasix for 3 days if weight gain over 4 pounds at baseline or worsening shortness of breath and call primary care physician if inadequate response to Lasix Continue aggressive PT OT at [facility] All meals on chair sitting upright at 90 degrees to prevent aspiration Return to ER if worsening fever chills shortness of breath, diarrhea, bleeding Review risk and side effect profile of medications including antibiotics. Side effect may include mild to severe reaction including rash, diarrhea, cdiff and even which can be prevented by close follow-up with PCP Refrain from smoking and alcohol Continue diet and activity as advised Discussed importance of medication adherence Please review medication list with patient prior to discharge Please schedule follow-up with PCP/Providers prior to discharge and provide printouts Portions of this chart may have been created with [employer] voice recognition software. Occasional wrong-word or ?sound-like? substitutions may have occurred due to the inherent limitations of voice recognition software. Please read the chart carefully and recognize, using context, where the substitutions have occurred. CC- PCP Prescriptions: Cefdinir 300 mg PO BID #10 capsule Levofloxacin [Levaquin] 750 mg PO DAILY #5 tablet - Follow up Plan Follow up with: Claudia Klein DO [Primary Care Provider] - Disposition: Xfer SNF Prognosis: Undetermined Rehab Potential: Fair I certify that the patient requires SNF services: Yes Overall status at discharge: patient is progressing back to baseline Medical - DS: Qual - VTE Deep Vein Thrombosis/Pulmonary Embolism Present on Admission: No
== END 2016-12-29 14:15 | DRG 432 ==
LOC: ICU 11:50 → ED 11:50 → OBSVTOIN 20:25 → ICU 20:37 → MEDSUR 12-28 13:35
PROVIDERS: ADMIT Internal Medicine; ATTEND Internal Medicine